=== PATIENT | male | born 1975 | race Caucasian/White ===

== ENCOUNTER 2021-06-01 02:30 | Inpatient (IN) | payer OTHER ==
[2021-06-01] VITALS (8 sets, daily range): BP systolic 118–144; BP diastolic 58–89
[~2021-06-01] VITALS: Ht 177.8 cm; Wt 89.0 kg
[2021-06-01] MEDS ORDERED: MAGNESIUM HYDROXIDE 2,400 MG/30 ML ORAL.SUSP. PO PRN (04:00)
[2021-06-01] MEDS ORDERED: fentaNYL PF VIAL 100 MCG/2 ML VIAL IVP PRN (04:00)
[2021-06-01] MEDS ORDERED: ACETAMINOPHEN 325 MG TABLET. PO PRN (04:00)
[2021-06-01] MEDS ORDERED: MORPHINE SULFATE 2 MG/ML INJ. IV PRN (04:00)
[2021-06-01] MEDS ORDERED: ONDANSETRON PF 4 MG/2 ML VIAL. IVP PRN (04:00)
[2021-06-01] MEDS ORDERED: NITROGLYCERIN SUBLINGUAL 0.4 MG BOTTLE OF 25. SL PRN (04:00)
--- NOTE | 2021-06-01 07:54 | PDOC1 ---
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 Described as squeezing, took his breath away. Associated with diaphoresis with some numbness and tingling in his arms and shoulders bilaterally with associated weakness that began at approximately 2030 on 05/31/2021, 15 minutes before coming into the emergency department accompanied by his . No dyspnea on exertion, orthopnea, PND or edema. Denies any history of VTE. Denies any recent immobilization or travel. Denies any drug use. Patient states he does drink 6 or 7 drinks daily. Denies tobacco use. States he works out frequently. He does note he has 4 sons lives with him and his and one of his sons did have COVID-19 over a week and a half ago and is recovered no one else in the family has had symptoms he has completed 2 doses of mRNA vaccine as well as booster for COVID-19 at the end of March 2021. Patient took 324 of aspirin just before coming. Given nitroglycerin in ED. Given morphine IV with near resolution of pain EKG with a rate of 80, QRS of 98, QTc of 421, no STEMI. However is abnormal with T wave inversions in 3 and aVF as well as V3, 4 and 5. Concerning for ischemia. Initial troponin normal. Second EKG 1 hour later with dynamic changes of the previously mentioned returning to baseline. Rate of 80, QRS of 92, QTc of 488. Repeat troponin 282. Started on heparin for NSTEMI. CT chest abdomen pelvis with borderline distended loops of small bowel no pulmonary embolism and no aortic aneurysm noted no lymphadenopathy Labs with WBC 8.2, Hb 15, platelets 296, INR 1, PTT 21, D-dimer 0.27, NA 142, K3.6, BUN 16, CR 1.2, glucose 97 magnesium 2.2, calcium 8.9, LFTs within normal laboratory limits, first high-sensitivity troponin is 31, second is 282 at 3 hours, rapid influenza and rapid COVID-19 negative. EKG sinus rhythm 66 bpm, normal axis and intervals, QTC 411. Transferred to [facility] for cardiology evaluation and further care on heparin gtt. Family History Family History: Cancer (Testicular - father), Coronary Artery Disease (Father, mother, maternal grandmother) Social History Smoke: No ALCOHOL: heavy Drugs: None Current Medications Current Medications Current Medications Ondansetron HCl (Zofran) 4 mg PRN Q4HRS PRN IVP NAUSEA/VOMITING; Start 06/01/21 at 04:00 Nitroglycerin (Nitrostat) 0.4 mg PRN Q5MIN PRN SL CHEST PAIN; Start 06/01/21 at 04:00 Fentanyl Citrate (Fentanyl 2ml Vial) 25 mcg PRN Q3HRS PRN IVP SEVERE PAIN 7-10; Start 06/01/21 at 04:00 Acetaminophen (Tylenol) 650 mg PRN Q6HRS PRN PO MILD PAIN / TEMP > 100.3'F; Start 06/01/21 at 04:00 Morphine Sulfate (Morphine Sulfate) 2 mg PRN Q1HR PRN IV PAIN MILD/MOD Last administered on 06/01/21at 06:28; Start 06/01/21 at 04:00 Magnesium Hydroxide (Milk Of Magnesia) 2,400 mg PRN Q12HR PRN PO CONSTIPATION; Start 06/01/21 at 04:00 Heparin Sodium/ Dextrose 250 ml @ 10.632 mls/ hr CONT PRN IV PER PROTOCOL; Start 06/01/21 at 04:00 Heparin Sodium (Porcine) (Heparin Sodium) 2,200 unit PRN Q6HRS PRN IV FOR UFH LEVEL LESS THAN 0.2; Start 06/01/21 at 04:00 Aspirin (Ecotrin) 325 mg DAILYWBKFT PO ; Start 06/01/21 at 08:00 Multivitamins (Thera M Plus) 1 tab DAILY PO ; Start 06/06/21 at 09:00 Folic Acid (Folic Acid) 1 mg DAILY PO ; Start 06/06/21 at 09:00 Thiamine Mononitrate (Vitamin B-1) 100 mg DAILY PO ; Start 06/06/21 at 09:00 Lorazepam (Ativan) 0.5 mg PRN Q1HR PRN PO For CIWA 8-14; Start 06/01/21 at 04:00 Lorazepam (Ativan) 1 mg PRN Q1HR PRN PO For CIWA 15 or greater; Start 06/01/21 at 04:00 Lorazepam (Ativan Inj) 0.5 mg PRN Q1HR PRN IV For CIWA 8-14; Start 06/01/21 at 04:00 Lorazepam (Ativan Inj) 1 mg PRN Q1HR PRN IV For CIWA 15 or greater; Start 06/01/21 at 04:00 Allergies Allergies: Coded Allergies: No Known Drug Allergies (Unverified , 06/01/21) ROS General: YES: Fatigue, Malaise; No: Chills, Night Sweats, Appetite, Other PSYCHOLOGICAL ROS: YES: Anxiety; No: Behavioral Disorder, Concentration difficultie, Decreased libido, Depression, Disorientation, Hallucinations, Hostility, Irritablity, Memory difficulties, Mood Swings, Obsessive thoughts, Physical abuse, Sexual abuse, Sleep disturbances, Suicidal ideation, Other Eyes: No Blurry vision, No Decreased vision, No Double vision, No Dry eyes, No Excessive tearing, No Eye Pain, No Itchy Eyes, No Loss of vision, No Photophobia, No Scotomata, No Uses contacts, No Uses glasses, No Other HEENT: No: Heacaches, Visual Changes, Hearing change, Nasal congestion, Nasal discharge, Oral lesions, Sinus pain, Sore Throat, Epistaxis, Sneezing, Snoring, Tinnitus, Vertigo, Vocal changes, Other ALLERGY AND IMMUNOLOGY: No: Hives, Insect Bite Sensitivity, Itchy/Watery Eyes, Nasal Congestion, Post Nasal Drip, Seasonal Allergies, Other Hematological and Lymphatic: No: Bleeding Problems, Blood Clots, Blood Transfusions, Brusing, Night Sweats, Pallor, Swollen Lymph Nodes, Other ENDOCRINE: No: Breast Changes, Galactorrhea, Hair Pattern Changes, Hot Flashes, Malaise/lethargy, Mood Swings, Palpitations, Polydipsia/polyuria, Skin Changes, Temperature Intolerance, Unexpected Weight Changes, Other Breast: No New/Changing Breast Lumps, No Nipple changes, No Nipple discharge, No Other Respiratory: YES: Shortness of breath; No: Cough, Hemoptysis, Orthopnea, Pleuritic Pain, SOB with excertion, Sputum Changes, Stridor, Tachypnea, Wheezing, Other Cardiovascular: yes Chest Pain; No Palpitations, No Orthopnea, No Paroxysmal Noc. Dyspnea, No Edema, No Lt Headedness, No Other Gastrointestinal: Yes Nausea; No Vomiting, No Abdominal Pain, No Diarrhea, No Constipation, No Melena, No Hematochezia, No Other Genitourinary: No Dysuria, No Frequency, No Incontinence, No Hematuria, No Retention, No Discharge, No Urgency, No Pain, No Flank Pain, No Other, No , No , No , No , No , No , No Musculoskeletal: No Gait Disturbance, No Joint Pain, No Joint Stiffness, No Joint Swelling, No Muscle Pain, No Muscular Weakness, No Pain In:, No Swelling In:, No Other Neurological: No Behavorial Changes, No Bowel/Bladder ControlChng, No Confusion, No Dizziness, No Gait Disturbance, No Headaches, No Impaired Coord/balance, No Memory Loss, No Numbness/Tingling, No Seizures, No Speech Problems, No Tremors, No Visual Changes, No Weakness, No Other Skin: No Dry Skin, No Eczema, No Hair Changes, No Lumps, No Mole Changes, No Mottling, No Nail Changes, No Pruritus, No Rash, No Skin Lesion Changes, No Other, No Acne Physical Exam General: Alert, Oriented X3, Cooperative, mild distress HEENT: PERRLA Lungs: Clear to auscultation, Normal air movement Heart: S1S2, RRR, no thrills, no rubs, no gallops, no murmurs Abdomen: Normal bowel sounds, Soft, No tenderness, No hepatosplenomegaly, No masses Rectal Exam: not examined Extremities: No clubbing, No cyanosis, No edema, Normal pulses, No tenderness/swelling Skin: No rashes, No breakdown, No significant lesion Neuro: Normal gait, Normal speech, Strength at 5/5 X4 ext, Normal tone, Sensation intact, Cranial nerves 3-12 NL, Reflexes 2+ Psych/Mental Status: Mental status NL, Mood NL Vitals Vitals Vital Signs Date Time Temp Pulse Resp B/P (MAP) Pulse Ox O2 Delivery O2 Flow Rate FiO2 06/01/21 06:28 Room Air 06/01/21 02:25 98.2 58 18 142/89 (106) [address] ANGIO CHEST ABD PELVIS CT ANGIOGRAM AORTA: The aorta is normal in course and caliber. There is no evidence of aneurysm, stenosis, wall thickening or dissection. A small ductus bump is noted, a normal variant. The origins of the great vessels are patent. The celiac axis, SMA, single bilateral renal arteries and SINDHU are patent. CT ANGIOGRAM CHEST: There is adequate opacification of the pulmonary arteries. No filling defects are seen to suggest pulmonary embolus. The central airways are patent. There is no focal consolidation, pleural effusion or pneumothorax. The visualized thyroid gland is within normal limits. No lymphadenopathy is seen. The heart is normal in size without pericardial effusion. CT ANGIOGRAM ABDOMEN PELVIS: The liver, gallbladder, spleen, pancreas, adrenal glands and kidneys are normal. Urinary bladder is normal in appearance. There are a few borderline distended fluid-filled loops of small bowel in the midabdomen measuring up to 3 cm in diameter. Fecal matter seen within the colon. Findings suggest mild ileus. No definite transition point is seen. No bowel inflammation is seen. No evidence for acute appendicitis. No significant atherosclerotic calcifications are seen. No lymphadenopathy or ascites is seen. Degenerative changes are seen in the spine. Impression: Normal caliber aorta without evidence for dissection. No evidence for pulmonary embolus. A few borderline distended loops of small bowel suggest mild ileus. Early or partial small bowel obstruction is not excluded, though no definite transition point is identified. VTE Prophylaxis Ordered VTE Prophylaxis Devices: Yes VTE Pharmacological Prophylaxi: Yes Assessment/Plan Assessment/Plan A/P: NSTEMI -chest pain upper extremity weakness concerning for active NSTEMI. ASA given. Cardiology consulted. Continue heparin GTT. Nitroglycerin and morphine oxygen. Cardiac cath recommended. ETOH use disorder - counseled on cutting back. FEN - NPO PPX - heparin GTT FULL CODE Dispo - CVC for NSTEMI Justifications for Admission Chest Pain Indications Serious Diagnosis?: Yes Justification for admission: Chest pain may be indicative of potentially serious diagnosis/diagnoses Please state condition(s) which will require inpatient level of care for further evaluation and management. Other Justification MELISSA JEFFREY MD Jun 01, 2021 07:54
[2021-06-01] MEDS ORDERED: ASPIRIN ENTERIC COATED 325 MG TABLET.DR. PO SCH (08:00)
[2021-06-01 08:43] LABS: BASO % 1 % (0-3); EOS # 0.3 x10^3/uL (0.0-0.7); EOS % 5 % (0-3); HEMATOCRIT 43.1 % (39.0-53.0); HEMOGLOBIN 14.5 g/dL (13.0-17.5); LYMPH # 2.6 x10^3/uL (1.0-4.8); LYMPH % 35 % (24-48); MEAN CORPUSCULAR HEMOGLOBIN 30 pg (25-35); MEAN CORPUSCULAR HGB CONC 34 g/dL (31-37); MEAN CORPUSCULAR VOLUME 89 fL (79-100); MONO # 0.5 x10^3/uL (0.0-1.1); MONO % 7 % (0-9); NEUT % 53 % (31-73); PLATELET COUNT 259 x10^3/uL (140-400); RED BLOOD COUNT 4.84 x10^6/uL (4.30-5.70); RED CELL DISTRIBUTION WIDTH 13.6 % (11.5-14.5); WHITE BLOOD COUNT 7.5 x10^3/uL (4.0-11.0)
[2021-06-01 08:48] LABS: ALBUMIN 3.5 g/dL (3.4-5.0); ALBUMIN/GLOBULIN RATIO 1.2 (1.0-1.7); GFR 80.4; POTASSIUM 3.9 mmol/L (3.5-5.1); TOTAL BILIRUBIN 0.3 mg/dL (0.2-1.0); TOTAL PROTEIN 6.4 g/dL (6.4-8.2)
[2021-06-01 08:49] LABS: CHOLESTEROL/HDL RATIO 6.9
[2021-06-01] MEDS: HEPARIN for IV BOLUS 10,000 UNIT/10 ML VIAL. IV PRN (08:53)
--- NOTE | 2021-06-01 08:57 | NUR ---
ufh resulted at <0.10, bolus given et rate increased by 3u/kg.
--- NOTE | 2021-06-01 10:21 | PDOC2 ---
EVELYNE REYNOSO WARPER FIXER 06/01/21 1021: CARDIAC CONSULT DATE OF CONSULT Date of Consult DATE: 06/01/21 TIME: 10:16 REASON FOR CONSULT Reason for Consult: NSTEMI REFERRING PHYSICIAN Referring Physician: Dr. Jones SOURCE Source: Chart review, Patient HISTORY OF PRESENT ILLNESS HISTORY OF PRESENT ILLNESS This is a 45 yo male who initially presented to [facility] secondary to chest pain. Troponin level was noted to be elevated and patient was transferred to [facility] for further evaluation and treatment. Patient reports acute onset of pain/tightness in his central chest yesterday evening. Was sitting watching television when pain came on. Associated with shortness of breath (difficulty taking a deep breath), and tingling sensation in his bilateral forearms. No reported dizziness, diaphoresis, or palpitations. Pain became more intense so he went to the ED for further evaluation and treatment. Patient is very physically active. Exercises daily. Reports that he felt slight more fatigued this past weekend so he did not workout as he usually does. No recent illness or fevers. No previous history of CAD or prior cardiac workup. PAST MEDICAL HISTORY Cardiovascular: No pertinent hx Pulmonary: No pertinent hx GI: No pertinent hx Musculoskeletal: Osteoarthritis Renal/: No pertinent hx Endocrine: No pertinent hx PAST SURGICAL HISTORY Past Surgical History: Other (cervical fusion ) FAMILY HISTORY Family History: Heart Disease SOCIAL HISTORY Smoke: No ALCOHOL: other (5-6 beers daily) Drugs: None Lives: with Family CURRENT MEDICATIONS CURRENT MEDICATIONS Current Medications Medications (Trade) Dose Ordered Sig/Lidia Route PRN Reason Start Time Stop Time Status Last Admin Dose Admin Morphine Sulfate (Morphine Sulfate) 2 mg PRN Q1HR PRN IV PAIN MILD/MOD 06/01/21 04:00 06/01/21 06:28 Heparin Sodium (Porcine) (Heparin Sodium) 2,200 unit PRN Q6HRS PRN IV FOR UFH LEVEL LESS THAN 0.2 06/01/21 04:00 06/01/21 08:53 Aspirin (Ecotrin) 325 mg DAILYWBKFT PO 06/01/21 08:00 06/01/21 08:11 ALLERGIES ALLERGIES: Coded Allergies: No Known Drug Allergies (Unverified , 06/01/21) ROS Review of System 14 point ROS conducted with pertinent positives noted above in HPI PHYSICAL EXAM General: Alert, Oriented X3, Cooperative, No acute distress HEENT: Atraumatic Lungs: Clear to auscultation Heart: Regular rate Abdomen: Soft, No tenderness Extremities: No edema Skin: No significant lesion Neuro: Normal speech, Sensation intact Psych/Mental Status: Mental status NL, Mood NL MUSCULOSKELETAL: No deformity VITALS/I&O VITALS/I&O: Vital Signs Date Time Temp Pulse Resp B/P (MAP) Pulse Ox O2 Delivery O2 Flow Rate FiO2 06/01/21 08:10 16 97 Room Air 06/01/21 07:00 98.0 50 134/76 (95) 98.0 I & O 05/31/21 05/31/21 06/01/21 14:59 22:59 06:59 Intake Total 0 ml Balance 0 ml LABS Lab: Laboratory Tests Test 06/01/21 07:05 White Blood Count 7.5 x10^3/uL (4.0-11.0) Red Blood Count 4.84 x10^6/uL (4.30-5.70) Hemoglobin 14.5 g/dL (13.0-17.5) Hematocrit 43.1 % (39.0-53.0) Mean Corpuscular Volume 89 fL (79-100) Mean Corpuscular Hemoglobin 30 pg (25-35) Mean Corpuscular Hemoglobin Concent 34 g/dL (31-37) Red Cell Distribution Width 13.6 % (11.5-14.5) Platelet Count 259 x10^3/uL (140-400) Neutrophils (%) (Auto) 53 % (31-73) Lymphocytes (%) (Auto) 35 % (24-48) Monocytes (%) (Auto) 7 % (0-9) Eosinophils (%) (Auto) 5 % (0-3) H Basophils (%) (Auto) 1 % (0-3) Neutrophils # (Auto) 4.0 x10^3/uL (1.8-7.7) Lymphocytes # (Auto) 2.6 x10^3/uL (1.0-4.8) Monocytes # (Auto) 0.5 x10^3/uL (0.0-1.1) Eosinophils # (Auto) 0.3 x10^3/uL (0.0-0.7) Basophils # (Auto) 0.0 x10^3/uL (0.0-0.2) Heparin Anti-Xa Act, Unfractionated < 0.10 IU/mL (0.30-0.70) L Sodium Level 142 mmol/L (136-145) Potassium Level 3.9 mmol/L (3.5-5.1) Chloride Level 106 mmol/L (98-107) Carbon Dioxide Level 25 mmol/L (21-32) Anion Gap 11 (6-14) Blood Urea Nitrogen 16 mg/dL (8-26) Creatinine 1.0 mg/dL (0.7-1.3) Estimated GFR (Cockcroft-Gault) 80.4 BUN/Creatinine Ratio 16 (6-20) Glucose Level 102 mg/dL (70-99) H Calcium Level 8.0 mg/dL (8.5-10.1) L Total Bilirubin 0.3 mg/dL (0.2-1.0) Aspartate Amino Transferase (AST) 51 U/L (15-37) H Alanine Aminotransferase (ALT) 45 U/L (16-63) Alkaline Phosphatase 35 U/L (46-116) L Troponin I High Sensitivity 6542 ng/L (4-75) H Total Protein 6.4 g/dL (6.4-8.2) Albumin 3.5 g/dL (3.4-5.0) Albumin/Globulin Ratio 1.2 (1.0-1.7) Triglycerides Level 100 mg/dL (0-150) Cholesterol Level 192 mg/dL (0-200) LDL Cholesterol, Calculated 144 mg/dL (0-100) H VLDL Cholesterol, Calculated 20 mg/dL (0-40) Non-HDL Cholesterol Calculated 164 mg/dL (0-129) H HDL Cholesterol 28 mg/dL (40-60) L Cholesterol/HDL Ratio 6.9 Thyroid Stimulating Hormone (TSH) 3.541 uIU/mL (0.358-3.74) Laboratory Tests 06/01/21 07:05 Laboratory Tests 06/01/21 07:05 ASSESSMENT/PLAN ASSESSMENT/PLAN 1. Chest pain, typical features 2. NSTEMI; high sensitivity trop highest 6542. on heparin gtt 3. Dyslipidemia 4. ETOH misuse Recommendations ASA Continue heparin gtt Add statin Echocardiogram Given symptomatology in setting of NSTEMI, recommend cardiac catheterization with possible PCI. R/b/a discussed with patient and and they are agreeable to proceed Keep NPO. Will proceed with later today. SAVANNAH MURRAY MD 06/02/21 1208: CARDIAC CONSULT ASSESSMENT/PLAN ASSESSMENT/PLAN Late entry for 06/01/2021 Patient seen and examined. Agree with above nurse practitioner note. Please see cath report for full details EVELYNE REYNOSO APRN Jun 01, 2021 10:21 SAVANNAH MURRAY MD Jun 02, 2021 12:08
[2021-06-01] MEDS: ASPIRIN ENTERIC COATED 81 MG TABLET.DR. PO SCH (11:29)
--- NOTE | 2021-06-01 12:41 | NUR ---
SS following for discharge planning. SS reviewed pt chart and discussed with pt RN. Pt is from home with spouse and is currently on room air. Cardiology consulted. Heparin drip. Pt scheduled for left heart cath. SS will continue to follow for discharge planning.
[2021-06-01] MEDS ORDERED: LIDOCAINE 1% PF 2 ML VIAL. ONE (14:26)
[2021-06-01] MEDS ORDERED: IODIXANOL 320 MG/ML 100 ML VIAL. ONE ×2 (14:26→15:11)
[2021-06-01] MEDS ORDERED: VERAPAMIL 5 MG/2 ML VIAL. ONE (14:30)
[2021-06-01] MEDS ORDERED: MIDAZOLAM HCL/PF 2 MG/2 ML VIAL. ONE ×3 (14:30→15:20)
[2021-06-01] MEDS ORDERED: fentaNYL PF VIAL 100 MCG/2 ML VIAL ONE ×2 (14:30→15:18)
[2021-06-01] MEDS ORDERED: HEPARIN for IV BOLUS 10,000 UNIT/10 ML VIAL. ONE (14:30)
[2021-06-01] MEDS ORDERED: NITROGLYCERIN 200 MCG/2 ML SYRINGE FOR CATH/VASC LAB. ONE ×2 (14:31)
--- NOTE | 2021-06-01 14:56 | PDOC ---
MODERATE SEDATION ASSESSMENT RISKS/ALTERNATIVES Risks/Alternatives Risks and alternatives of this type of sedation and procedure discussed with: RISK/ALTERNATIVES: Patient H & P ON CHART H & P H & P on chart and reviewed for co-morbid conditions and appropriate labs. H&P ON CHART: Yes STATUS PREG STATUS ASSESSED: N/A MEDS/ALLERGIES REVIEWED Meds/Allergies Reviewed Medications and Allergies including time and route of recently administered narcotics and sedatives. MEDS/ALLERGIES REVIEWED: Yes ASA RATING ASA RATING: II AIRWAY ASSESSMENT Airway Assessment Airway patency, oral function limitations, presence of caps, crowns, dentures, partials, and ability to extend neck assessed. AIRWAY ASSESSMENT: Yes MALLAMPATI SCORE MALLAMPATI SCORE: II PRE-SEDATION ASSESSMENT PRE-SEDATION ASSESSMENT: Yes SAVANNAH MURRAY MD Jun 01, 2021 14:55
[2021-06-01] MEDS ORDERED: fentaNYL PF VIAL 100 MCG/2 ML VIAL IV ONE (15:45)
[2021-06-01] MEDS ORDERED: VERAPAMIL 5 MG/2 ML VIAL. IART ONE (15:45)
[2021-06-01] MEDS ORDERED: IODIXANOL 320 MG/ML 100 ML VIAL. IART ONE (15:45)
[2021-06-01] MEDS ORDERED: MIDAZOLAM HCL/PF 2 MG/2 ML VIAL. IV ONE (15:45)
[2021-06-01] MEDS ORDERED: LIDOCAINE 1% PF 2 ML VIAL. INJ ONE (15:45)
[2021-06-01] MEDS ORDERED: NITROGLYCERIN 200 MCG/2 ML SYRINGE FOR CATH/VASC LAB. IART ONE (15:45)
[2021-06-01] MEDS ORDERED: HEPARIN for IV BOLUS 10,000 UNIT/10 ML VIAL. IART ONE (15:45)
[2021-06-01] MEDS ORDERED: CONTRAST GIVEN. MC PRN (16:00)
--- NOTE | 2021-06-01 16:01 | NUR ---
SANAM ET SHOLA ISAACS'Pina. DISCHARGE MEDICATIONS ET INSTRUCTIONS REVIEWED WITH PATIENT AND SPOUSE. ALL QUESTIONS ANSWERED TO PT SATISFACTION. HARD SCRIPT FOR BP CUFF, AND RETURN TO WORK NOTE SENT WITH PT AT TIME OF DISCHARGE. Addendum: 06/01/21 at 1603 by MAVIS PROCTOR RN INCORRECT DOCUMENTATION, INCORRECT PATIENT.
--- NOTE | 2021-06-01 17:57 | CARD ---
MR#: [id number] Date of Study: 06/01/2021 Ordering Physician: SAVANNAH MURRAY, Referring Physician: SAVANNAH MURRAY, Tech: RT Kesha(R) APPROVED REPORT Technologist: Neisha Huerta RT(R) Nurse: Florence Stephen RN Procedure(s) performed: FLUORO TIME:12.8 MIN DOSE: 120 Gycm2 CONTRAST:154cc's MOD SED:48 min LHC, Coronary angiography, Left ventriculogram Unsuccessful PTCA of the 1st diagonal INDICATION The indication(s) include : non-STEMI . [facility] Clinical Frailty Scale [facility] Clinical Frailty Scale: Managing Well Heart Failure Heart Failure: No CASE TECHNIQUE IV conscious sedation was used throughout procedure with appropriate monitoring and was performed in the presence of a registered nurse who was an independent trained observer other than the physician p erforming the procedure. During this case, Fluoroscopy and low osmolar contrast were used for imaging . Specimen(s) Removed: N/A Estimated Blood loss: 15 cc's. PROCEDURE NARRATIVE Clinical information: 45 y.o male presented with chest and troponin elevated suggestive of ischemia and was then taken to [facility]. Informed consent: Written informed consent was obtained from the patient after adequate discussion of the risks and jose efits of the procedure. Procedure details: ACCESS: The right wrist was prepped and draped in usual sterile fashion. Under 1% lidocaine local anesthesia a 6 [place] Terumo sheath was placed in the right radial artery via the Seldinger technique. DIAGNOSTIC ANGIOGRAPHY: Right and left coronary arteries were engaged with a 6 [place] TIG catheter. Diagnostic angiography i n multiple views were obtained. Next, a 6 [place] pigtail catheter was placed in the left ventricle a nd a LVEDP was measured. A pullback was performed after left ventriculography. All catheters were e xchanged over J-tip guidewire. FINDINGS: ======= Aorta: 110/80 LVEDP: 15 mmHg Left ventriculogram: Ejection fraction 55% Normal wall motion without any evidence of aortic or mitral insufficiency. Coronary angiography: LM: Large caliber vessel with normal angiographic appearance LAD: Large caliber vessel with a long mid myocardial bridge. No significant stenosis is noted. D1: Small to moderate sized vessel with a proximal 100% occlusion. Ramus: Large caliber vessel with normal angiographic appearance. LCX: Small caliber non-dominant vessel with mild luminal irregularities RCA: Large caliber dominant vessel with normal angiographic appearance. RPDA: Moderate caliber vessel with normal angiographic appearance. INTERVENTIONAL TECHNIQUE: Attempted PCI of the 1st diagonal Heparin was used for anticoagulation. Through a 6Fr EBU 3.5 guide catheter a 0.014'' Prowater wire wa s unable to cross the lesion. Next, attempts to cross the lesion with a Choice PT wire were also unsu cessful. The lesion was felt to be chronic and likely not thrombotic versus possible spontaneous [place] nary artery dissection, therefore, further intervention was deferred in favor of medical therapy. CLOSURE: At case completion the right radial sheath was removed and a Terumo radial band was applied with 11 m L of air. Hemostasis was achieved. COMPLICATIONS: No acute complications noted Conclusion 1. Normal left sided filling pressures. 2. Normal LV systolic function. Ef 55% 3. One vessel coronary artery disease involving a small to medium sized diagonal branch with likely S CAD versus subtotal occlusion due to chronic plaque. 4. Mid LAD myocardial bridging. Recommendations 1. Aggressive medical therapy. Signed by : Savannah Murray, Electronically Approved : 06/01/2021 17:57:10
[2021-06-01] MEDS ORDERED: ATORVASTATIN CALCIUM 40 MG TABLET. PO SCH (21:00)
[2021-06-01] MEDS: HEPARIN 25,000UTS/250ML PREMIX 250 ML IV PRN (22:21)
[2021-06-02 01:23] LABS: BASO # 0.1 x10^3/uL (0.0-0.2); BASO % 1 % (0-3); EOS # 0.3 x10^3/uL (0.0-0.7); EOS % 5 % (0-3); HEMATOCRIT 43.6 % (39.0-53.0); HEMOGLOBIN 14.5 g/dL (13.0-17.5); LYMPH # 2.5 x10^3/uL (1.0-4.8); LYMPH % 36 % (24-48); MEAN CORPUSCULAR HEMOGLOBIN 30 pg (25-35); MEAN CORPUSCULAR HGB CONC 33 g/dL (31-37); MEAN CORPUSCULAR VOLUME 89 fL (79-100); MONO # 0.4 x10^3/uL (0.0-1.1); MONO % 6 % (0-9); NEUT # 3.8 x10^3/uL (1.8-7.7); NEUT % 53 % (31-73); PLATELET COUNT 248 x10^3/uL (140-400); RED BLOOD COUNT 4.88 x10^6/uL (4.30-5.70); RED CELL DISTRIBUTION WIDTH 13.8 % (11.5-14.5); WHITE BLOOD COUNT 7.1 x10^3/uL (4.0-11.0)
[2021-06-02 01:36] LABS: CALCIUM 7.9 mg/dL (8.5-10.1); GFR 80.4; POTASSIUM 4.1 mmol/L (3.5-5.1)
[2021-06-02] MEDS: HEPARIN for IV BOLUS 10,000 UNIT/10 ML VIAL. IV PRN (02:31)
[2021-06-02 03:31] VITALS: BP 110/57
[2021-06-02 07:00] VITALS: BP 124/59
[2021-06-02] MEDS: ASPIRIN ENTERIC COATED 81 MG TABLET.DR. PO SCH (08:16)
--- NOTE | 2021-06-02 09:30 | PDOC ---
EVELYNE REYNOSO BANQUET PILOT 06/02/21 0930: CARDIO Progress Notes Date and Time Date of Service 06/02/21 Time of Evaluation 0930 Subjective Subjective: No shortness of breath, No Palpitations, No Dizziness, Other (CP nearly resolved ) Vitals Vitals Vital Signs Date Time Temp Pulse Resp B/P (MAP) Pulse Ox O2 Delivery O2 Flow Rate FiO2 06/02/21 08:00 Room Air 2.0 06/02/21 03:31 98.7 50 16 110/57 (74) 100 98.7 Weight Weight [ ] Input and Output Intake and Output Intake and Output 06/02/21 07:00 Intake Total 440 ml Output Total 2300 ml Balance -1860 ml Intake Oral 440 ml Output Urine Total 2300 ml Laboratory Labs Laboratory Tests Test 06/01/21 15:12 06/01/21 18:45 06/02/21 01:05 Activated Clotting Time 139 sec (92-181) Heparin Anti-Xa Act, Unfractionated 0.47 IU/mL (0.30-0.70) < 0.10 IU/mL (0.30-0.70) White Blood Count 7.1 x10^3/uL (4.0-11.0) Red Blood Count 4.88 x10^6/uL (4.30-5.70) Hemoglobin 14.5 g/dL (13.0-17.5) Hematocrit 43.6 % (39.0-53.0) Mean Corpuscular Volume 89 fL (79-100) Mean Corpuscular Hemoglobin 30 pg (25-35) Mean Corpuscular Hemoglobin Concent 33 g/dL (31-37) Red Cell Distribution Width 13.8 % (11.5-14.5) Platelet Count 248 x10^3/uL (140-400) Neutrophils (%) (Auto) 53 % (31-73) Lymphocytes (%) (Auto) 36 % (24-48) Monocytes (%) (Auto) 6 % (0-9) Eosinophils (%) (Auto) 5 % (0-3) Basophils (%) (Auto) 1 % (0-3) Neutrophils # (Auto) 3.8 x10^3/uL (1.8-7.7) Lymphocytes # (Auto) 2.5 x10^3/uL (1.0-4.8) Monocytes # (Auto) 0.4 x10^3/uL (0.0-1.1) Eosinophils # (Auto) 0.3 x10^3/uL (0.0-0.7) Basophils # (Auto) 0.1 x10^3/uL (0.0-0.2) Sodium Level 142 mmol/L (136-145) Potassium Level 4.1 mmol/L (3.5-5.1) Chloride Level 107 mmol/L (98-107) Carbon Dioxide Level 27 mmol/L (21-32) Anion Gap 8 (6-14) Blood Urea Nitrogen 13 mg/dL (8-26) Creatinine 1.0 mg/dL (0.7-1.3) Estimated GFR (Cockcroft-Gault) 80.4 Glucose Level 98 mg/dL (70-99) Calcium Level 7.9 mg/dL (8.5-10.1) Physical Exam HEENT: Neck Supple W Full Motion Chest: Symmetric Heart: S1S2, RRR Abdomen: Soft N/T Extremities: No Edema Neurology: alert, oriented, follow commands Assessment Assessment 1. Chest pain, typical features 2. NSTEMI; high sensitivity trop highest 6542. LH with one vessel CAD involving a small to medium sized diagonal branch with likely SCAD versus subtotal occlusion due to chronic plaque. LVEF 55%. on heparin gtt 3. Dyslipidemia; statin Recommendations Secondary prevention ASA, statin therapy Add Plavix Troponin trend down. Okay to discontinue heparin gtt No BB therapy due to baseline HR near 55-60 Risk stratification modification Supportive care Will arranged followup in clinic with Dr. Corea. Justicifation of Admission Dx: Justifications for Admission: Justification of Admission Dx: Yes Comments: NSTEMI CAD SAVANNAH COREA MD 06/02/212041: CARDIO Progress Notes Plan Plan Patient seen and examined. Agree with above nurse practitioner note. Discussed extensively with the patient and his . We discussed the etiology of his non-STEMI. Based on his LDL, presumed prior history of coronary artery disease based on evaluation he had through a hospital a year or 2 ago this appears to be a progression of stable coronary disease which ultimately presented with complete occlusion. Given the degree of difficulty crossing the lesion it was most likely a chronic plaque. Possibility of a spontaneous coronary artery dissection still remains. We will continue asa, statin, plavix. Echo unremarkable. Consider outpt cardiac MRI depending on symptoms. EVELYNE REYNOSO APRN Jun 02, 2021 09:30 SAVANNAH COREA MD Jun 02, 2021 20:42
[2021-06-02] MEDS: HEPARIN 25,000UTS/250ML PREMIX 250 ML IV PRN (09:43)
--- NOTE | 2021-06-02 09:49 | NUR ---
UFH = 0.42, NO CHANGE IN RATE INDICATED.
--- NOTE | 2021-06-02 10:51 | PDOC ---
[employer] PROGRESS NOTE Date of Service DOS: DATE: 06/02/21 TIME: 10:51 Chief Complaint Chief Complaint NSTEMI -chest pain upper extremity weakness concerning for active NSTEMI. ASA given. Cardiology consulted. Continue heparin GTT. Nitroglycerin and morphine oxygen. Cardiac cath recommended. ETOH use disorder - counseled on cutting back. FEN - Cardiac diet PPX - heparin GTT FULL CODE Dispo - f/u cardiac recs 1. Normal left sided filling pressures. 2. Normal LV systolic function. Ef 55% 3. One vessel coronary artery disease involving a small to medium sized diagonal branch with likely SCAD versus subtotal occlusion due to chronic plaque. 4. Mid LAD myocardial bridging. 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 Described as squeezing, took his breath away. Associated with diaphoresis with some numbness and tingling in his arms and shoulders bilaterally with associated weakness that began at approximately 2030 on 05/31/2021, 15 minutes before coming into the emergency department accompanied by his . No dyspnea on exertion, orthopnea, PND or edema. Denies any history of VTE. Denies any recent immobilization or travel. Denies any drug use. Patient states he does drink 6 or 7 drinks daily. Denies tobacco use. States he works out frequently. He does note he has 4 sons lives with him and his and one of his sons did have COVID-19 over a week and a half ago and is recovered no one else in the family has had symptoms he has completed 2 doses of mRNA vaccine as well as booster for COVID-19 at the end of March 2021. Patient took 324 of aspirin just before coming. Given nitroglycerin in ED. Given morphine IV with near resolution of pain EKG with a rate of 80, QRS of 98, QTc of 421, no STEMI. However is abnormal with T wave inversions in 3 and aVF as well as V3, 4 and 5. Concerning for ischemia. Initial troponin normal. Second EKG 1 hour later with dynamic changes of the previously mentioned returning to baseline. Rate of 80, QRS of 92, QTc of 488. Repeat troponin 282. Started on heparin for NSTEMI. CT chest abdomen pelvis with borderline distended loops of small bowel no pulmonary embolism and no aortic aneurysm noted no lymphadenopathy Labs with WBC 8.2, Hb 15, platelets 296, INR 1, PTT 21, D-dimer 0.27, NA 142, K3.6, BUN 16, CR 1.2, glucose 97 magnesium 2.2, calcium 8.9, LFTs within normal laboratory limits, first high-sensitivity troponin is 31, second is 282 at 3 hours, rapid influenza and rapid COVID-19 negative. EKG sinus rhythm 66 bpm, normal axis and intervals, QTC 411. Transferred to [facility] for cardiology evaluation and further care on heparin gtt. 06/02: Cardiac cath on 06/01 likely SCAD. Counseled on cutting back on high intensity exercise. Cannot take BB due to low resting heart rate. Vitals/I&O Vitals/I&O: Vital Signs Date Time Temp Pulse Resp B/P (MAP) Pulse Ox O2 Delivery O2 Flow Rate FiO2 06/02/21 08:00 Room Air 2.0 06/02/21 07:00 98.1 55 20 124/59 (80) 97 98.1 I & O 06/01/21 06/01/21 06/02/21 15:00 23:00 07:00 Intake Total 0 ml 440 ml 0 ml Output Total 500 ml 1300 ml 500 ml Balance -500 ml -860 ml -500 ml Physical Exam General: Alert, Oriented X3, Cooperative, No acute distress Heart: Regular rate Abdomen: Soft, No tenderness Extremities: No edema Skin: No significant lesion Labs Labs: Laboratory Tests Test 06/01/21 15:12 06/01/21 18:45 06/02/21 01:05 06/02/21 08:45 Activated Clotting Time 139 sec (92-181) Heparin Anti-Xa Act, Unfractionated 0.47 IU/mL (0.30-0.70) < 0.10 IU/mL (0.30-0.70) 0.42 IU/mL (0.30-0.70) White Blood Count 7.1 x10^3/uL (4.0-11.0) Red Blood Count 4.88 x10^6/uL (4.30-5.70) Hemoglobin 14.5 g/dL (13.0-17.5) Hematocrit 43.6 % (39.0-53.0) Mean Corpuscular Volume 89 fL (79-100) Mean Corpuscular Hemoglobin 30 pg (25-35) Mean Corpuscular Hemoglobin Concent 33 g/dL (31-37) Red Cell Distribution Width 13.8 % (11.5-14.5) Platelet Count 248 x10^3/uL (140-400) Neutrophils (%) (Auto) 53 % (31-73) Lymphocytes (%) (Auto) 36 % (24-48) Monocytes (%) (Auto) 6 % (0-9) Eosinophils (%) (Auto) 5 % (0-3) Basophils (%) (Auto) 1 % (0-3) Neutrophils # (Auto) 3.8 x10^3/uL (1.8-7.7) Lymphocytes # (Auto) 2.5 x10^3/uL (1.0-4.8) Monocytes # (Auto) 0.4 x10^3/uL (0.0-1.1) Eosinophils # (Auto) 0.3 x10^3/uL (0.0-0.7) Basophils # (Auto) 0.1 x10^3/uL (0.0-0.2) Sodium Level 142 mmol/L (136-145) Potassium Level 4.1 mmol/L (3.5-5.1) Chloride Level 107 mmol/L (98-107) Carbon Dioxide Level 27 mmol/L (21-32) Anion Gap 8 (6-14) Blood Urea Nitrogen 13 mg/dL (8-26) Creatinine 1.0 mg/dL (0.7-1.3) Estimated GFR (Cockcroft-Gault) 80.4 Glucose Level 98 mg/dL (70-99) Calcium Level 7.9 mg/dL (8.5-10.1) Comment Review of Relevant I have reviewed the following items amilcar (where applicable) has been applied. Medications: Current Medications Medications (Trade) Dose Ordered Sig/Lidia Route PRN Reason Start Time Stop Time Status Last Admin Dose Admin Atorvastatin Calcium (Lipitor) 40 mg QHS PO 06/01/21 21:00 06/01/21 20:16 Aspirin (Ecotrin) 81 mg DAILYWBKFT PO 06/01/21 12:00 06/02/21 08:16 Nitroglycerin (Nitroglycerin) 200 mcg 1X ONCE IART 06/01/21 15:45 06/01/21 15:50 DC 06/01/21 15:37 Verapamil HCl (Verapamil) 2.5 mg 1X ONCE IART 06/01/21 15:45 06/01/21 15:50 DC 06/01/21 15:37 Heparin Sodium (Porcine) (Heparin Sodium) 2,500 unit 1X ONCE IART 06/01/21 15:45 06/01/21 15:50 DC 06/01/21 15:38 Heparin Sodium/ Sodium Chloride (HEPARIN for ARTERIAL LINE FLUSH) 1,000 unit 1X ONCE IART 06/01/21 15:45 06/01/21 15:50 DC 06/01/21 15:37 Midazolam HCl (Versed) 6 mg 1X ONCE IV 06/01/21 15:45 06/01/21 15:50 DC 06/01/21 15:40 Fentanyl Citrate (Fentanyl 2ml Vial) 175 mcg 1X ONCE IV 06/01/21 15:45 06/01/21 15:50 DC 06/01/21 15:39 Iodixanol (Visipaque 320) 154 ml 1X ONCE IART 06/01/21 15:45 06/01/21 15:50 DC 06/01/21 15:37 Lidocaine HCl (Xylocaine-Mpf 1% 2ml Vial) 2 ml 1X ONCE INJ 06/01/21 15:45 06/01/21 15:50 DC 06/01/21 15:38 Justifications for Admission Chest Pain Indications Serious Diagnosis?: Yes Justification for admission: Chest pain may be indicative of potentially serious diagnosis/diagnoses Please state condition(s) which will require inpatient level of care for further evaluation and management. Other Justification MELISSA JEFFREY MD Jun 02, 2021 10:51
[2021-06-02 11:00] VITALS: BP 130/74
--- NOTE | 2021-06-02 12:25 | CARD ---
MR#: [id number] Date of Study: 06/01/2021 Ordering Physician: EVELYNE REYNOSO, Referring Physician: EVELYNE REYNOSO, Daniel: Sb Crews [facility] APPROVED REPORT EXAM: Two-dimensional and M-mode echocardiogram with Doppler and color Doppler. Other Information Quality : GoodHR: 57bpm Rhythm : NSRNSRAtrial FibrillationNSR INDICATION Chest Pain NSTEMI RISK FACTORS Hyperlipidemia 2D DIMENSIONS Left Atrium(2D)3.7 (1.6-4.0cm)IVSd1.0 (0.7-1.1cm) Aortic Root(2D)3.6 (2.0-3.7cm)LVDd5.0 (3.9-5.9cm) LVOT Diameter2.4 (1.8-2.4cm)PWd1.0 (0.7-1.1cm) LVDs2.9 (2.5-4.0cm)FS (%) 42.0 % SV88.0 ml Aortic Valve AoV Peak Gage.155.1cm/sAoV VTI30.1cm AO Peak GR.9.6mmHgLVOT Peak Gage.105.4cm/s AO Mean GR.5mmHgAVA (VMAX)3.07cm2 Mitral Valve MV E Crdbvvzx62.5cm/sMV E Peak Gr.2mmHg MV DECEL [id number] A Vqvldhbt97.9cm/s MV E Mean Gr.1mmHgE/A Ratio1.3 Pulmonary Valve PV Peak Byppnsbh018.6cm/s Tricuspid Valve TR P. Itugmngb537dx/sTR Peak Gr.17mmHg Pulmonary Vein S1 Bsodrwts00.0cm/sD2 Jrmkhtyu91.6cm/s LEFT VENTRICLE The left ventricle is normal size. There is normal left ventricular wall thickness. The left ventricu lar systolic function is normal. LV ejection fraction of 50 to 55%. There is normal LV segmental wall motion. The left ventricular diastolic function and filling is normal for age. No left ventricle thr ombus noted on this study. There is no ventricular septal defect visualized. There is no left ventric ular aneurysm. There is no mass noted in the left ventricle. RIGHT VENTRICLE The right ventricle is normal size. There is normal right ventricular wall thickness. The right ventr icular systolic function is normal. ATRIA The left atrium size is normal. The right atrium size is normal. The interatrial septum is intact wit h no evidence for an atrial septal defect or patent foramen ovale as noted on 2-D or Doppler imaging. AORTIC VALVE The aortic valve is normal in structure and function. Doppler and Color Flow revealed no significant aortic regurgitation. There is no significant aortic valvular stenosis. There is no aortic valvular v egetation. MITRAL VALVE The mitral valve is normal in structure and function. There is no evidence of mitral valve prolapse. There is no mitral valve stenosis. Doppler and Color-flow revealed trace mitral regurgitation. TRICUSPID VALVE The tricuspid valve is normal in structure and function. Doppler and Color Flow revealed no tricuspid valve regurgitation noted. There is no tricuspid valve prolapse or vegetation. There is no tricuspid valve stenosis. PULMONIC VALVE The pulmonary valve is normal in structure and function. Doppler and Color Flow revealed no pulmonic valvular regurgitation. There is no pulmonic valvular stenosis. GREAT VESSELS The aortic root is normal in size. The ascending aorta is normal in size. The pulmonary artery is nor mal. The IVC is normal in size and collapses >50% with inspiration. PERICARDIAL EFFUSION There is no pleural effusion. There is no evidence of significant pericardial effusion. Critical Notification Critical Value: No <Conclusion> The left ventricle is normal size. The left ventricular systolic function is normal. LV ejection fraction of 50 to 55%. Doppler and Color Flow revealed no significant aortic regurgitation. There is no significant aortic valvular stenosis. Doppler and Color-flow revealed trace mitral regurgitation. Doppler and Color Flow revealed no tricuspid valve regurgitation noted. Signed by : José Luis Fry MD Electronically Approved : 06/02/2021 12:25:20
--- NOTE | 2021-06-02 12:44 | NUR ---
SS following up with discharge planning. SS reviewed pt chart and discussed with pt RN. Pt is currently on room air. Cardiology following. Pt had heart cath on 06/01/2021. Heparin drip. SS will continue to follow for discharge planning.
[2021-06-02] MEDS ORDERED: ASPI-886 PO (15:40)
[2021-06-02] MEDS ORDERED: ATOR40TA59 PO (15:40)
[2021-06-02] MEDS ORDERED: CLOP75TA PO (15:40)
[2021-06-02] MEDS ORDERED: NITR0.4T24 SL (15:40)
--- NOTE | 2021-06-02 15:43 | PDOC3 ---
Discharge Summary Visit Information Date of Admission: Jun 01, 2021 Date of Discharge: Jun 02, 2021 Admitting Diagnosis: Chest pain, NSTEMI Final Diagnosis Spontaneous coronary artery dissection Brief Hospital Course Allergies Allergies Coded Allergies Type Severity Reaction Last Updated Verified No Known Drug Allergies 06/01/21 No Vital Signs Vital Signs Date Time Temp Pulse Resp B/P (MAP) Pulse Ox O2 Delivery O2 Flow Rate FiO2 06/02/21 11:00 98.4 54 19 130/74 (92) 98 Room Air 98.4 06/02/21 08:00 2.0 Lab Results Laboratory Tests Test 06/01/21 07:05 06/01/21 15:12 06/01/21 18:45 06/02/21 01:05 White Blood Count 7.5 x10^3/uL (4.0-11.0) 7.1 x10^3/uL (4.0-11.0) Red Blood Count 4.84 x10^6/uL (4.30-5.70) 4.88 x10^6/uL (4.30-5.70) Hemoglobin 14.5 g/dL (13.0-17.5) 14.5 g/dL (13.0-17.5) Hematocrit 43.1 % (39.0-53.0) 43.6 % (39.0-53.0) Mean Corpuscular Volume 89 fL (79-100) 89 fL (79-100) Mean Corpuscular Hemoglobin 30 pg (25-35) 30 pg (25-35) Mean Corpuscular Hemoglobin Concent 34 g/dL (31-37) 33 g/dL (31-37) Red Cell Distribution Width 13.6 % (11.5-14.5) 13.8 % (11.5-14.5) Platelet Count 259 x10^3/uL (140-400) 248 x10^3/uL (140-400) Neutrophils (%) (Auto) 53 % (31-73) 53 % (31-73) Lymphocytes (%) (Auto) 35 % (24-48) 36 % (24-48) Monocytes (%) (Auto) 7 % (0-9) 6 % (0-9) Eosinophils (%) (Auto) 5 % (0-3) 5 % (0-3) Basophils (%) (Auto) 1 % (0-3) 1 % (0-3) Neutrophils # (Auto) 4.0 x10^3/uL (1.8-7.7) 3.8 x10^3/uL (1.8-7.7) Lymphocytes # (Auto) 2.6 x10^3/uL (1.0-4.8) 2.5 x10^3/uL (1.0-4.8) Monocytes # (Auto) 0.5 x10^3/uL (0.0-1.1) 0.4 x10^3/uL (0.0-1.1) Eosinophils # (Auto) 0.3 x10^3/uL (0.0-0.7) 0.3 x10^3/uL (0.0-0.7) Basophils # (Auto) 0.0 x10^3/uL (0.0-0.2) 0.1 x10^3/uL (0.0-0.2) Heparin Anti-Xa Act, Unfractionated < 0.10 IU/mL (0.30-0.70) 0.47 IU/mL (0.30-0.70) < 0.10 IU/mL (0.30-0.70) Sodium Level 142 mmol/L (136-145) 142 mmol/L (136-145) Potassium Level 3.9 mmol/L (3.5-5.1) 4.1 mmol/L (3.5-5.1) Chloride Level 106 mmol/L (98-107) 107 mmol/L (98-107) Carbon Dioxide Level 25 mmol/L (21-32) 27 mmol/L (21-32) Anion Gap 11 (6-14) 8 (6-14) Blood Urea Nitrogen 16 mg/dL (8-26) 13 mg/dL (8-26) Creatinine 1.0 mg/dL (0.7-1.3) 1.0 mg/dL (0.7-1.3) Estimated GFR (Cockcroft-Gault) 80.4 80.4 BUN/Creatinine Ratio 16 (6-20) Glucose Level 102 mg/dL (70-99) 98 mg/dL (70-99) Calcium Level 8.0 mg/dL (8.5-10.1) 7.9 mg/dL (8.5-10.1) Total Bilirubin 0.3 mg/dL (0.2-1.0) Aspartate Amino Transf (AST/SGOT) 51 U/L (15-37) Alanine Aminotransferase (ALT/SGPT) 45 U/L (16-63) Alkaline Phosphatase 35 U/L (46-116) Troponin I High Sensitivity 6542 ng/L (4-75) 5089 ng/L (4-75) Total Protein 6.4 g/dL (6.4-8.2) Albumin 3.5 g/dL (3.4-5.0) Albumin/Globulin Ratio 1.2 (1.0-1.7) Triglycerides Level 100 mg/dL (0-150) Cholesterol Level 192 mg/dL (0-200) LDL Cholesterol, Calculated 144 mg/dL (0-100) VLDL Cholesterol, Calculated 20 mg/dL (0-40) Non-HDL Cholesterol Calculated 164 mg/dL (0-129) HDL Cholesterol 28 mg/dL (40-60) Cholesterol/HDL Ratio 6.9 Thyroid Stimulating Hormone (TSH) 3.541 uIU/mL (0.358-3.74) Activated Clotting Time 139 sec (92-181) Test 06/02/21 08:45 Heparin Anti-Xa Act, Unfractionated 0.42 IU/mL (0.30-0.70) Laboratory Tests Test 06/01/21 18:45 06/02/21 01:05 06/02/21 08:45 Heparin Anti-Xa Act, Unfractionated 0.47 IU/mL (0.30-0.70) < 0.10 IU/mL (0.30-0.70) 0.42 IU/mL (0.30-0.70) White Blood Count 7.1 x10^3/uL (4.0-11.0) Red Blood Count 4.88 x10^6/uL (4.30-5.70) Hemoglobin 14.5 g/dL (13.0-17.5) Hematocrit 43.6 % (39.0-53.0) Mean Corpuscular Volume 89 fL (79-100) Mean Corpuscular Hemoglobin 30 pg (25-35) Mean Corpuscular Hemoglobin Concent 33 g/dL (31-37) Red Cell Distribution Width 13.8 % (11.5-14.5) Platelet Count 248 x10^3/uL (140-400) Neutrophils (%) (Auto) 53 % (31-73) Lymphocytes (%) (Auto) 36 % (24-48) Monocytes (%) (Auto) 6 % (0-9) Eosinophils (%) (Auto) 5 % (0-3) Basophils (%) (Auto) 1 % (0-3) Neutrophils # (Auto) 3.8 x10^3/uL (1.8-7.7) Lymphocytes # (Auto) 2.5 x10^3/uL (1.0-4.8) Monocytes # (Auto) 0.4 x10^3/uL (0.0-1.1) Eosinophils # (Auto) 0.3 x10^3/uL (0.0-0.7) Basophils # (Auto) 0.1 x10^3/uL (0.0-0.2) Sodium Level 142 mmol/L (136-145) Potassium Level 4.1 mmol/L (3.5-5.1) Chloride Level 107 mmol/L (98-107) Carbon Dioxide Level 27 mmol/L (21-32) Anion Gap 8 (6-14) Blood Urea Nitrogen 13 mg/dL (8-26) Creatinine 1.0 mg/dL (0.7-1.3) Estimated GFR (Cockcroft-Gault) 80.4 Glucose Level 98 mg/dL (70-99) Calcium Level 7.9 mg/dL (8.5-10.1) Troponin I High Sensitivity 5089 ng/L (4-75) Brief Hospital Course NSTEMI -chest pain upper extremity weakness concerning for active NSTEMI. ASA given. Cardiology consulted. Continue heparin GTT. Nitroglycerin and morphine oxygen. Cardiac cath recommended. ETOH use disorder - counseled on cutting back. FEN - Cardiac diet PPX - heparin GTT FULL CODE Dispo - f/u cardiac recs 1. Normal left sided filling pressures. 2. Normal LV systolic function. Ef 55% 3. One vessel coronary artery disease involving a small to medium sized diagonal branch with likely SCAD versus subtotal occlusion due to chronic plaque. 4. Mid LAD myocardial bridging. 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 Described as squeezing, took his breath away. Associated with diaphoresis with some numbness and tingling in his arms and shoulders bilaterally with associated weakness that be fiona at approximately 2030 on 05/31/2021, 15 minutes before coming into the emergency department accompanied by his . No dyspnea on exertion, orthopnea, PND or edema. Denies any history of VTE. Denies any recent immobilization or travel. Denies any drug use. Patient states he does drink 6 or 7 drinks daily. Denies tobacco use. States he works out frequently. He does note he has 4 sons lives with him and his and one of his sons did have COVID-19 over a week and a half ago and is recovered no one else in the family has had symptoms he has completed 2 doses of mRNA vaccine as well as booster for COVID-19 at the end of March 2021. Patient took 324 of aspirin just before coming. Given nitroglycerin in ED. Given morphine IV with near resolution of pain EKG with a rate of 80, QRS of 98, QTc of 421, no STEMI. However is abnormal with T wave inversions in 3 and aVF as well as V3, 4 and 5. Concerning for ischemia. Initial troponin normal. Second EKG 1 hour later with dynamic changes of the previously mentioned returning to baseline. Rate of 80, QRS of 92, QTc of 488. Repeat troponin 282. Started on heparin for NSTEMI. CT chest abdomen pelvis with borderline distended loops of small bowel no pulmonary embolism and no aortic aneurysm noted no lymphadenopathy Labs with WBC 8.2, Hb 15, platelets 296, INR 1, PTT 21, D-dimer 0.27, NA 142, K3.6, BUN 16, CR 1.2, glucose 97 magnesium 2.2, calcium 8.9, LFTs within normal laboratory limits, first high-sensitivity troponin is 31, second is 282 at 3 hours, rapid influenza and rapid COVID-19 negative. EKG sinus rhythm 66 bpm, normal axis and intervals, QTC 411. Transferred to [facility] for cardiology evaluation and further care on heparin gtt. 06/02: Cardiac cath on 06/01 likely SCAD. Counseled on cutting back on high intensity exercise. Cannot take BB due to low resting heart rate. Discharge Information Scheduled Aspirin (Aspirin Ec) 81 Mg Tablet.dr 81 MG PO DAILYWBKFT for SCAD for 30 Days, #30 Ref 11 Prescribed by: MELISSA JEFFREY MD on 06/02/211539 Atorvastatin Calcium (Atorvastatin Calcium) 40 Mg Tablet, 40 MG PO QHS for SCAD for 30 Days, #30 Ref 11 Prescribed by: MELISSA JEFFREY MD on 06/02/21 1540 Clopidogrel Bisulfate (Clopidogrel) 75 Mg Tablet, 75 MG PO DAILYWBKFT for SCAD for 30 Days, #30 Ref 11 Prescribed by: MELISSA JEFFREY MD on 06/02/210 Scheduled PRN Nitroglycerin (Nitrostat) 0.4 Mg Tab.subl, 0.4 MG SL PRN Q5MIN PRN for CHEST PAIN for 30 Days, #9 Ref 2 Prescribed by: MELISSA JEFFREY MD on 06/02/211539 Justicifation of Admission Dx: Justifications for Admission: Justification of Admission Dx: Yes MELISSA JEFFREY MD Jun 02, 2021 15:43
--- NOTE | 2021-06-02 16:01 | NUR ---
DISCHARGE. PIV'S ET TELE DISCONTINUED. DC MEDICATIONS AND FOLLOW UP INFORMATION COVERED WITH PATIENT. HEART RATE GOAS <150, PREFERRABLY 130 OR < DISCUSSED WITH PATIENT. PRESENT FOR TEACHING AND ASKED PERTINENT QUESTIONS WELL. AMBULATED OUT AT THIS TIME.
[2021-06-03] MEDS ORDERED: CLOPIDOGREL BISULFATE 75 MG TABLET PO SCH (08:00)
[2021-06-06] MEDS ORDERED: THIAMINE 100 MG TABLET. PO SCH (09:00)
[2021-06-06] MEDS ORDERED: MULTIVITAMIN with MINERAL TABLET. PO SCH (09:00)
[2021-06-06] MEDS ORDERED: FOLIC ACID 1 MG TABLET. PO SCH (09:00)
== END 2021-06-02 15:54 | disposition home or self-care (01) | DRG 280 ==
LOC: 6 SOUTH 02:30
PROVIDERS: ADMIT Internal Medicine; ATTEND Internal Medicine
PROC: 4A023N7 Measurement of Cardiac Sampling and Pressure, Left Heart, Percutaneous Approach (ICD-10-PCS; principal; 2021-06-01)
PROC: B2151ZZ Fluoroscopy of Left Heart using Low Osmolar Contrast (ICD-10-PCS; 2021-06-01)
PROC: 02JA3ZZ Inspection of Heart, Percutaneous Approach (ICD-10-PCS; 2021-06-01)
PROC: B2111ZZ Fluoroscopy of Multiple Coronary Arteries using Low Osmolar Contrast (ICD-10-PCS; 2021-06-01)
DX: I21.4 Non-ST elevation (NSTEMI) myocardial infarction (principal); I25.42 Coronary artery dissection; Q24.5 Malformation of coronary vessels; E78.5 Hyperlipidemia, unspecified; I25.10 Atherosclerotic heart disease of native coronary artery without angina pectoris; Z20.822 Contact with and (suspected) exposure to COVID-19; Z82.49 Family history of ischemic heart disease and other diseases of the circulatory system; M19.90 Unspecified osteoarthritis, unspecified site
CPT/HCPCS: 36415; 80048; 80053; 80061; 84443; 84484; 85025; 85347; 85520; 93306; 93458; 99152; 99153; C1894; J1644; J2250; J2270; J3010; J3490; Q9967; C8929; G0378